=== PATIENT | female | born 1985 | race Caucasian/White ===

== ENCOUNTER 2019-01-26 06:15 | Inpatient (IN) | payer MEDICAID ==
[2019-01-26] MEDS ORDERED: LACTATED RINGER'S 1,000 ML IV (06:38)
[2019-01-26] MEDS ORDERED: IBUPROFEN 600 MG TAB PO (07:00)
[2019-01-26] MEDS ORDERED: LIDOCAINE 1% (MPF) 30 ML INJ INJ ×2 (07:00→08:30)
[2019-01-26] MEDS ORDERED: BUTORPHANOL 2 MG INJ IV (07:00)
[2019-01-26] MEDS: MINERAL OIL LIGHT 10 ML VIAL TOP (07:00)
[2019-01-26] MEDS: LACTATED RINGER'S 1,000 ML IV ×3 (07:42→22:38)
[2019-01-26] MEDS ORDERED: METHYLERGONOVINE 0.2 MG INJ IM (08:30)
[2019-01-26] MEDS ORDERED: MISOPROSTOL 200 MCG TAB PR ×2 (08:30→12:00)
[2019-01-26] MEDS ORDERED: CARBOPROST 250 MCG INJ IM ×2 (08:30→12:00)
[2019-01-26 08:38] LABS: ADD MAN DIFF? NO
[2019-01-26 08:41] LABS: BASOPHILS % 0.3 % (0.0-2.0); EOSINOPHILS # 0.1 10^3/ul (0.0-0.5); EOSINOPHILS % 0.7 % (0.0-7.0); HEMATOCRIT 35.8 % (37.0-47.0); LYMPHOCYTES # 1.8 10^3/ul (0.8-2.9); LYMPHOCYTES % 27.1 % (15.0-51.0); MEAN CORPUSCULAR HEMOGLOBIN 29.5 pg (29.0-33.0); MEAN CORPUSCULAR HGB CONC 33.5 g/dl (32.0-37.0); MEAN PLATELET VOLUME 10.3 fl (7.4-10.4); MONOCYTE # 0.4 10^3/ul (0.3-0.9); MONOCYTES % 5.8 % (0.0-11.0); NEUTROPHIL # 4.4 10^3/ul (1.6-7.5); NEUTROPHILS % 65.8 % (39.0-77.0); PLATELET COUNT 212 10^3/UL (140-415); RED BLOOD COUNT 4.07 10^6/ul (4.20-5.40); RED CELL DISTRIBUTION WIDTH 13.1 % (11.5-14.5)
[2019-01-26 08:41] LABS: WHITE BLOOD COUNT 6.8 10^3/ul (4.8-10.8)
[2019-01-26 08:58] LABS: PROTIME 12.3 Sec (11.9-14.9)
[2019-01-26 08:59] LABS: PARTIAL THROMBOPLASTIN TIME 27.6 Sec (23.0-35.0)
[2019-01-26 10:28] LABS: HEPATITIS B SURFACE ANTIGEN NEGATIVE (NEGATIVE)
[2019-01-26] MEDS: OXYTOCIN 30 UNITS/LR 500 ML IV ×4 (11:29→16:50)
[2019-01-26] MEDS: LACTATED RINGER'S 1,000 ML IV* ×2 (11:40→19:40)
[2019-01-26] MEDS ORDERED: MAGNESIUM HYDROXIDE 30ML CUP PO (12:00)
[2019-01-26] MEDS ORDERED: WITCH HAZEL/GLYCERIN PAD PR (12:00)
[2019-01-26] MEDS ORDERED: DIPHENHYDRAMINE 25 MG CAP PO (12:00)
[2019-01-26] MEDS ORDERED: DIBUCAINE 1% 30 GM OINT TOP (12:00)
[2019-01-26] MEDS ORDERED: BENZOCAINE 20% 56 ML SPRAY TOP (12:00)
[2019-01-26] MEDS ORDERED: ONDANSETRON 4 MG INJ IV (12:00)
[2019-01-26] MEDS: IBUPROFEN 600 MG TAB PO ×3 (12:00→23:43)
[2019-01-26] MEDS ORDERED: ONDANSETRON 4 MG TAB PO (12:00)
[2019-01-26] MEDS ORDERED: HYDROCODONE/APAP (5/325) TAB PO ×2 (12:00)
[2019-01-26] MEDS ORDERED: NA PHOSPHATE/BIPHOS 133 ML ENEMA PR (12:00)
[2019-01-26] MEDS ORDERED: OXYTOCIN 30 UNITS/LR 500 ML IV (12:00)
[2019-01-26] MEDS ORDERED: SENNA/DOCUSATE NA (8.6MG/50MG) TAB PO (12:00)
[2019-01-26] MEDS ORDERED: DIPHENHYDRAMINE 50 MG INJ IV (12:00)
[2019-01-26 15:50] LABS: RAPID PLASMA REAGIN NONREACTIVE (NR)
[2019-01-26] MEDS: SENNA/DOCUSATE NA (8.6MG/50MG) TAB PO (21:50)
[2019-01-27] MEDS: LACTATED RINGER'S 1,000 ML IV* (03:40)
[2019-01-27] MEDS: IBUPROFEN 600 MG TAB PO ×3 (05:37→17:58)
[2019-01-27] MEDS: LACTATED RINGER'S 1,000 ML IV (06:38)
[2019-01-27 08:42] LABS: ADD MAN DIFF? NO
[2019-01-27 08:48] LABS: BASOPHILS % 0.3 % (0.0-2.0); EOSINOPHILS # 0.1 10^3/ul (0.0-0.5); EOSINOPHILS % 1.1 % (0.0-7.0); HEMOGLOBIN 10.7 g/dl (12.0-16.0); LYMPHOCYTES # 1.9 10^3/ul (0.8-2.9); LYMPHOCYTES % 28.9 % (15.0-51.0); MEAN CORPUSCULAR HEMOGLOBIN 29.8 pg (29.0-33.0); MEAN CORPUSCULAR HGB CONC 33.4 g/dl (32.0-37.0); MEAN CORPUSCULAR VOLUME 89.1 fl (82.0-101.0); MEAN PLATELET VOLUME 9.9 fl (7.4-10.4); MONOCYTE # 0.5 10^3/ul (0.3-0.9); MONOCYTES % 7.3 % (0.0-11.0); NEUTROPHILS % 61.9 % (39.0-77.0); PLATELET COUNT 182 10^3/UL (140-415); RED BLOOD COUNT 3.59 10^6/ul (4.20-5.40); RED CELL DISTRIBUTION WIDTH 13.1 % (11.5-14.5)
[2019-01-27 08:48] LABS: WHITE BLOOD COUNT 6.4 10^3/ul (4.8-10.8)
[2019-01-27] MEDS: SENNA/DOCUSATE NA (8.6MG/50MG) TAB PO ×2 (09:45→22:06)
[2019-01-27] MEDS: LANOLIN HPA 1 PKT TOP (17:58)
[2019-01-28] MEDS: IBUPROFEN 600 MG TAB PO ×3 (05:53→12:31)
[2019-01-28] MEDS ORDERED: DIPHTH/TET/ACEL PERTUSS (ADULT) 0.5 ML VIAL IM* (09:00)
[2019-01-28] MEDS ORDERED: MEASLES,MUMPS,RUBELLA VACCINE INJ SC* (09:00)
[2019-01-28] MEDS ORDERED: VARICELLA VACCINE LIVE/PF 1,350 UNIT/0.5 ML ML SC* (09:00)
[2019-01-28] MEDS: SENNA/DOCUSATE NA (8.6MG/50MG) TAB PO (09:30)
== END 2019-01-28 14:12 | disposition home or self-care (01) | DRG 807 ==
LOC: L-D 06:15 → PP1 16:03
PROVIDERS: Specialist
PROC: 10E0XZZ Delivery of Products of Conception, External Approach (ICD-10-PCS; principal; 2019-01-26 06:00)
PROC: 10907ZC Drainage of Amniotic Fluid, Therapeutic from Products of Conception, Via Natural or Artificial Opening (ICD-10-PCS; 2019-01-26 06:00)
DX: O77.0 Labor and delivery complicated by meconium in amniotic fluid (principal); Z37.0 Single live birth; Z3A.40 40 weeks gestation of pregnancy
CPT/HCPCS: 76815; 82962; 85025; 85610; 85730; 86592; 86900; 86901; 87340; 90716